=== PATIENT | male | born 1950 | race Caucasian/White ===

== ENCOUNTER 2020-12-09 06:32 | Emergency (ER) | payer MEDICARE, OTHER, SELFPAY ==
--- NOTE | 2020-12-09 07:21 | W.ED.COVID ---
HPI - COVID General: Chief Complaint: Infusion Bammaycoivtiffanie History of Present Illness: HPI Narrative: 70-year-old male presents emergency room he was scheduled for an outpatient monoclonal antibody infusion however the nurses notified me on his arrival that his oxygen sat was borderline at times he was desatting into 90 and slightly below. At rest he maintains his oxygenation. complaint: known COVID positive Prior covid testing: yes, results known (Patient test yesterday at an outpatient facility.) COVID 19 common symptoms: positive fever(s), chills, cough, dyspnea and body aches; negative throat pain, nasal congestion, nausea or diarrhea COVID 19 other sytmptoms: negative chest pain Onset (ago): day(s) (9) Severity: mild COVID Results: No Data to Display Review of Systems Const: Reports: fever(s), chills and body aches ENMT: Denies: throat pain, ear or mastoid pain, nasal discharge or nasal congestion Card: Reports: dyspnea on exertion; Denies: chest pain, edema or orthopnea Resp: Reports: dyspnea GI: Denies: nausea or diarrhea : Denies: flank pain, dysuria, urinary frequency or urinary urgency Skin/Breast: Denies: rash or pruritus Physical Exam Const: COMMON NORMALS: no acute distress GENERAL APPEARANCE: cooperative and comfortable ORIENTATION/CONSCIOUSNESS: Yes awake, Yes oriented to person, Yes oriented to place and Yes oriented to time HENMT: COMMON NORMALS: normocephalic, atraumatic and hearing grossly normal bilaterally HEAD & SCALP: normocephalic and atraumatic Neck/C-Spine: COMMON NORMALS: no JVD Resp: COMMON NORMALS: normal respiratory effort, No retractions, No use of accessory muscles and clear to auscultation bilaterally AUSCULTATION: clear to auscultation bilaterally Cardio: COMMON NORMALS: no JVD, regular rate, regular rhythm and No murmurs present (Cardio) RATE: regular rate RHYTHM: regular rhythm GI: COMMON NORMALS: Soft to palpation and No hepatosplenomegaly present AUSCULTATION: Yes normoactive bowel sounds PALPATION: Yes Soft to palpation, No Tenderness to palpation present (GI), No Guarding due to palpation present (GI) and Yes No hepatosplenomegaly present Extremity: COMMON NORMALS: normal to inspection, capillary refill normal, no clubbing, cyanosis or edema, no calf tenderness and no pedal edema Neuro: SENSORIUM/ORIENTATION: Yes oriented to person, Yes oriented to place and Yes oriented to time Skin: COMMON NORMALS: no rashes or lesions noted GENERAL SKIN EXAM: no rashes or lesions noted MDM - COVID MDM Narrative: Medical decision making narrative: Unfortunately the patient desatted to 89 with ambulatory oxygen testing. According to emergency use authorization criteria for the monoclonal antibody infusions he does not qualify at this point. We will cancel the infusion instead we will discharge him home on 2 L by nasal cannula of oxygen have him monitor his oxygen saturations at the fingers at monitor. We will also start him on dexamethasone 10 mg daily have him follow-up in 3 to 5 days. COVID Results: No Data to Display Discharge Plan Discharge Patient Disposition: Home Clinical Impression: COVID-19 Condition: Stable Prescriptions: New Medrol (Fredrick) 4 mg tablets,dose pack See Rx Instructions .ROUTE .COMPLEX Qty: 21 RF: 0 Discharge Orders: Discharge ED (Routine); Ordered 12/09/20 Ordered By: Herberth Shetty Other Ambulatory Orders: DME: Oxygen (Order) Location: None Selected Ordered By: Herberth Shetty Referrals: Marixa Damian FNP [Primary Care Provider] - Discharge Diet: Usual diet Discharge Activity: Limit activity as instructed Patient Instructions: Opioid Safety Activity Restrictions/Additional Instructions: We will start you on oxygen. He will likely be using this for the next 2 to 3 weeks or potentially longer. Also start on oral steroids. Recommend that you follow-up with your primary care doctor within the next 5 to 7 days. Monitor your oxygen at home with a finger saturation monitor given to you today if consistently falls below 90 to 92% while on oxygen 2 L/min return to the emergency room. Coding Level of Care Code ED Live Truck Technician for Wayne Daley Exam Comprehensive
[2020-12-09 07:32] VITALS: BP 134/88; PULSE 78; RESP 18; TEMP 36.9; O2SAT 94; BMI 31.2
[2020-12-09 07:37] VITALS: BP 134/88; PULSE 80; RESP 18; TEMP 36.9; O2SAT 94
[2020-12-09 08:30] VITALS: BP 129/86; PULSE 74; RESP 18; TEMP 37.1; O2SAT 95
== END 2020-12-09 08:30 | disposition home or self-care (01) ==
PROVIDERS: Emergency Provider Family Medicine; PCP Nurse Practitioner; Visit Provider Nurse Practitioner
DX: U07.1 COVID-19 (principal)
CPT/HCPCS: 99282

== ENCOUNTER 2025-07-01 15:58 | Emergency (ER) | payer MEDICARE, OTHER, SELFPAY ==
[2025-07-01 16:00] VITALS: BP 156/80; PULSE 59; RESP 16; TEMP 36.5; O2SAT 98
--- NOTE | 2025-07-01 16:03 | ECG_ITS ---
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 Measurements Intervals [place] Rate: 86 P: 73 WI: 199 QRS: -38 QRSD: 150 T: 18 QT: 391 QTc: 469 Interpretive Statements SINUS RHYTHM WITH FREQUENT VENTRICULAR PREMATURE COMPLEXES LEFT AXIS DEVIATION [QRS AXIS < -30] RIGHT BUNDLE BRANCH BLOCK [120+ ms QRS DURATION, UPRIGHT V1, 40+ ms S IN I/aVL/V4/V5/V6] No previous ECG available for comparison Electronically Signed On 07-01-2025 20:02:50 [employer] by Rex Roberson M.D. [email or web address]
--- OUTSIDE RECORDS SUMMARY | 2025-07-01 16:03 | XMS_ITS | Encounter Summary ---
Author Organization [facility] [facility] Address [address] [place] [address] Care Team Providers Care Heavy Equipment Mechanic Name Role Phone Unavailable Primary Care Provider Unavailabl e Encounter Details Date Type Department Care Team (Latest Contact Info) Description 04/24/2002 Outpatient Historical [facility] Booker Lowe Jr., MD [facility] [place] [address] OSTEOARTHROS NOS-UNSPEC (Primary Dx); Inhibited sex excitement Social History Tobacco Use Types Packs/Day Years Used Date Smoking Tobacco: Never Assessed Sex and Gender Information Value Date Recorded Sex Assigned at Not on file Legal 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
--- OUTSIDE RECORDS SUMMARY | 2025-07-01 16:03 | XMS_ITS | Clinical Summary ---
Author Organization [employer] [facility] Address [address] 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
--- NOTE | 2025-07-01 16:13 | XRR_ITS ---
PROCEDURE INFORMATION: Exam: XR Chest Exam date and time: 07/01/2025 4:18 PM Age: 75 years old Clinical indication: Shortness of breath; Additional info: Short of breath TECHNIQUE: Imaging protocol: Radiologic exam of the chest. Views: 1 view. COMPARISON: No relevant prior studies available. FINDINGS: Lungs: Unremarkable. No consolidation. Pleural spaces: Unremarkable. No pleural effusion. No pneumothorax. Heart/Mediastinum: Heart size is enlarged. Bones/joints: There are moderate degenerative changes of the bony structures. XR/XR chest 1V portable [id number] IMPRESSION: Cardiomegaly. No acute abnormality identified.
--- NOTE | 2025-07-01 16:16 | ED_ITS ---
HPI - SOB/Dyspnea 2 General: Chief Complaint: Shortness of Breath/Dyspnea Stated Complaint: Possible A Fib SOB Feels like Passing out Time Seen by Provider: 07/01/25 16:09 History of Present Illness: HPI Narrative: 75-year-old man with who has no known pa st medical history and takes no regular medications who presents emergency room from urgent care after he was found to be in atrial fibrillation with a controlled rate. He has no known history of this. He had gone to the clinic because he was feeling tired, fatigued and having fatigue on exertion with some shortness of breath for the last couple of weeks. No chest pain. No abdominal pain. No nausea or vomiting. No altered mental status. Related Data Home Medications ?Medication ?Instructions ?Recorded ?Confirmed aspirin 81 mg tablet,delayed 81 mg PO DAILY 07/01/25 1 08/31/24 release (Adult Low Dose Aspirin) semaglutide 2 mg/dose (8 mg/3 mL) 2 mg SUBCUT Q7D 06/2007/01/25 subcutaneous pen injector (Ozempic) Previous Rx's ?Medication ?Instructions ?Recorded metoprolol tartrate 25 mg tablet 12.5 mg (1/2 x 25 mg) PO BID #30 07/01/25 tabs Allergies Allergy/AdvReac Type Severity Reaction Status Date / Time No Known Allergies Allergy Verified 07/01/25 14:12 Review of Systems 2 Narrative: Constitutional symptoms: Negative except as documented in HPI. Skin symptoms: Negative except as documented in HPI. Eye symptoms: Negative except as documented in HPI. ENMT symptoms: Negative except as documented in HPI. Respiratory symptoms: Negative except as documented in HPI. Cardiovascular symptoms: Negative except as documented in HPI. Gastrointestinal symptoms: Negative except as documented in HPI. Genitourinary symptoms: Negative except as documented in HPI. Musculoskeletal symptoms: Negative except as documented in HPI. Neurologic symptoms: Negative except as documented in HPI. Psychiatric symptoms: Negative except as documented in HPI. Endocrine symptoms: Negative except as documented in HPI. PFSH ED 2 PFSH: Social History Smoking and tobacco/nicotine status: never used tobacco/nicotine Physical Exam 2 Narrative: EXAM NARRATIVE: General: Alert, no acute distress. Skin: Warm, dry. Head: Normocephalic, atraumatic. Neck: Supple, trachea midline. Eye: Extraocular movements are intact. Ears, nose, mouth and throat: mucosa moist. Cardiovascular: Regular, Normal peripheral perfusion. Respiratory: Lungs are clear to auscultation, respirations are non-labored, breath sounds are equal, Symmetrical chest wall expansion. Gastrointestinal: Soft, Nontender, Non distended Musculoskeletal: Normal ROM, no deformity. Neurological: Alert and oriented, No focal neurological deficit observed. Psychiatric: Cooperative, appropriate mood & affect. Course 2 Vital Signs: Vital signs: Vital Signs Temperature 97.7 F 07/01/25 16:00 Pulse Rate 64 07/01/25 17:30 Respiratory Rate 16 07/01/25 16:00 Blood Pressure 131/72 07/01/25 17:30 Pulse Oximetry 97 07/01/25 17:30 Oxygen Delivery Me thod Room Air 07/01/25 17:30 MDM - SOB/Dyspnea Medical Decision Making Medical decision making Patient's reason for coming to the emergency room: Exertional dyspnea and fatigue Social determinants: Patient is retired I reviewed the patient's medical record. Patient has no previous lab work here. He was seen by Dr. Arroyo back in October. He has an appoint with him next week. I reviewed the patient's current home meds Patient says he takes no home medications currently. Alternate historians: None Differential diagnosis for patient with shortness of breath includes but is not limited to and based on the above HPI, review of systems and physical exam: Pneumonia. Bronchitis. Asthma or COPD with acute exacerbation. Acute coronary syndrome / PA. Pulmonary embolism. Anxiety. Congestive heart failure. Viral infections including influenza and Covid-19. Atrial fibrillation. Anxiety. Pleural effusion. Pneumothorax. Orders placed to evaluate differential diagnosis based on the above differential, HPI and physical exam EKG: Time 1603. Rate 86. Normal sinus rhythm, No ST-T changes, PVCs, right bundle branch block, This was reviewed and interpreted by myself the ER physician at 1608 Chest x-ray: No acute process. No infiltrate. No pneumothorax. This was reviewed and interpreted by myself the emergency room physician. I also reviewed the radiology report. Lab Review: Laboratory results were reviewed and interpreted by myself the emergency room physician. No leukocytosis. No anemia. No renal failure. Assessment of risk: Level of risk: Mild. Hospitalization considerations: No consideration for hospitalization today. Reexamination: Patient remained stable. No increased work of breathing. No altered mental status. No focal motor deficits. Assessment and plan: PVCs - Discharged home - Discussed plan with patient. Answered any questions. - Evaluation and treatment of this problem were appropriate in the emergency setting. Lab Data 07/01/25 16:22 07/01/25 16:22 Labs/Radiology: Radiology Impressions Chest X-Ray 07/01/25 16:13 IMPRESSION: Cardiomegaly. No acute abnormality identified. Laboratory Results WBC 8.08 10^3/uL (3.29-11.43) 07/01/25 16:22 RBC 3.58 10^6/uL (3.85-5.65) L 07/01/25 16:22 Hgb 8.70 g/dL (11.27-16.99) L 07/01/25 16:22 Hct 28.5 % (37-53) L 07/01/25 16:22 MCV 79.6 fl (82-101) L 07/01/25 16:22 MCH 24.3 pg (27-33) L 07/01/25 16:22 MCHC 30.5 g/dL (30-55) 07/01/25 16:22 RDW 12.8 % (12.1-15.1) 07/01/25 16:22 Plt Count 198 10^3/cmm (157-399) 07/01/25 16:22 MPV 9.3 fL (7.4-10.4) 07/01/25 16:22 Neut % (Auto) 72.9 % 07/01/25 16:22 Lymph % (Auto) 17.1 % 07/01/25 16:22 Ponce % (Auto) 8.8 % 07/01/25 16:22 Eos % (Auto) 0.4 % 07/01/25 16:22 Baso % (Auto) 0.6 % 07/01/25 16:22 Neut # (Auto) 5.89 10^3/uL (1.8-7.7) 07/01/25 16:22 Lymph # (Auto) 1.4 10^3/uL (0.8-4.8) 07/01/25 16:22 Ponce # (Auto) 0.7 10^3/uL (0.2-0.9) 07/01/25 16:22 Eos # (Auto) 0.0 10^3/uL (0.0-0.8) 07/01/25 16:22 Baso # (Auto) 0.1 10^3/uL (0.0-0.1) 07/01/25 16:22 Nucleated RBC % (auto) 0 % 07/01/25 16:22 Nucleated RBCs # 0.0 /100WBC 07/01/25 16:22 Sodium 138 mmol/L (136-145) 07/01/25 16:22 Potassium 4.7 mmol/L (3.5-5.1) 07/01/25 16:22 Chloride 101 mmol/L (98-107) 07/01/25 16:22 Carbon Dioxide 25 mmol/L (22-29) 07/01/25 16:22 Anion Gap 16.7 (5-19) 07/01/25 16:22 BUN 22 mg/dL (8-23) 07/01/25 16:22 Creatinine 1.2 mg/dL (0.7-1.2) 07/01/25 16:22 GFR Calculation Not Reportable 07/01/25 16:22 Glucose 119 mg/dL (65-115) H 07/01/25 16:22 Calculated Osmolality 290 mOsm/kg (285-295) 07/01/25 16:22 Calcium 9.4 mg/dL (8.5-10.5) 07/01/25 16:22 Magnesium 2.2 mg/dL (1.7-2.3) 07/01/25 16:22 Total Bilirubin 0.4 mg/dL (0.15-1.2) 07/01/25 16:22 AST 14 U/L (0-40) 07/01/25 16:22 ALT 9 U/L (0-41) 07/01/25 16:22 Alkaline Phosphatase 89 U/L (40-130) 07/01/25 16:22 NT-Pro-B Natriuret Pep 533 pg/mL (0-450) H 07/01/25 16:22 Total Protein 8.0 g/dL (6.6-8.7) 07/01/25 16:22 Albumin 4.5 g/dL (3.5-5.2) 07/01/25 16:22 Globulin 3.5 g/dL (1.3-4.6) 07/01/25 16:22 TSH 3.95 uIU/mL (0.27-4.20) 07/01/25 16:22 All radiology interpretation(s) finalized by discharge Discharge Plan Discharge Patient Disposition: Home Clinical Impression: Frequent PVCs Condition: Stable Prescriptions: New metoprolol tartrate 25 mg tablet 12.5 mg PO BID Qty: 30 0RF No Action aspirin [Adult Low Dose Aspirin] 81 mg tablet,delayed release (DR/EC) 81 mg PO DAILY Ozempic 2 mg/dose (8 mg/3 mL) pen injector 2 mg SUBCUT Q7D Discharge Orders: Discharge ED (Routine); Ordered 07/01/25 Ordered By: Mary Gregory Referrals: Marixa Damian FNP [Primary Care Provider, Family Practice] Discharge Diet: Usual diet Discharge Activity: Increase activity as tolerated Patient Instructions: Heart Palpitations (ED), Opioid Safety, Pain Management, Patient Portal & [place] Instructions Activity Restrictions/Additional Instructions: Please keep follow-up appointment with Dr. Estrada Thank you for choosing [facility] for your healthcare needs today. You have been screened and evaluated and felt safe for discharge. Health conditions do change or evolve sometimes and as such it is important that you follow up with your Primary Doctor to be re checked, 3-5 days is a general good time frame for follow up. You are always welcome to return to the ED for re assessment if your symptoms are worsening or you have new concerns Print Language: [place] Coding Level of Care Code ED Disability Counselor for Wayne Daley
[2025-07-01 16:27] LABS: Hematocrit 28.5 % (37-53); Hemoglobin 8.70 g/dL (11.27-16.99); Mean Corpuscular HGB Conc 30.5 g/dL (30-55); Mean Corpuscular Hemoglobin 24.3 pg (27-33); Mean Corpuscular Volume 79.6 fl (82-101); Nucleated Red Blood Cells % 0 %; Platelet Count 198 10^3/cmm (157-399); Red Blood Count 3.58 10^6/uL (3.85-5.65); White Blood Count 8.08 10^3/uL (3.29-11.43)
--- NOTE | 2025-07-01 16:49 | PC.PHAR ---
Patient took his Ozempic on Sunday . Patient states he takes his Ozempic joseph 21 days not weekly like it says . Patient also wasn't sure of his dosage .I posted dosage according to the Pharmacy Sig .
[2025-07-01 17:10] LABS: Alanine Aminotransferase 9 U/L (0-41); Albumin Level 4.5 g/dL (3.5-5.2); Alkaline Phosphatase 89 U/L (40-130); Anion Gap 16.7 (5-19); Aspartate Amino Transferase 14 U/L (0-40); Blood Urea Nitrogen 22 mg/dL (8-23); Calcium 9.4 mg/dL (8.5-10.5); Carbon Dioxide 25 mmol/L (22-29); Chloride 101 mmol/L (98-107); Creatinine Clr Calc Pharmacy 69.5368; Globulin 3.5 g/dL (1.3-4.6); Glucose 119 mg/dL (65-115); Magnesium 2.2 mg/dL (1.7-2.3); NT Pro B Type Natriuretic Pept 533 pg/mL (0-450); Osmolality Calculated 290 mOsm/kg (285-295); Potassium 4.7 mmol/L (3.5-5.1); Sodium 138 mmol/L (136-145); Thyroid Stimulating Hormone 3.95 uIU/mL (0.27-4.20); Total Protein 8.0 g/dL (6.6-8.7)
[2025-07-01 17:30] VITALS: BP 131/72; PULSE 64; O2SAT 97
[2025-07-01 18:01] VITALS: BP 141/86; PULSE 77; O2SAT 97
== END 2025-07-01 18:03 | disposition home or self-care (01) ==
PROVIDERS: Physician Assistant; Emergency Provider Emergency Medicine; PCP Nurse Practitioner
DX: I49.3 Ventricular premature depolarization (principal); Z79.82 Long term (current) use of aspirin
CPT/HCPCS: 36415; 71045; 80053; 83735; 83880; 84443; 85025; 93005; 99285

== ENCOUNTER → 2025-07-10 10:12 | Outpatient (BNVA) | payer MEDICARE, OTHER, SELFPAY | PROVIDERS: PCP Family Medicine; Visit Provider Family Medicine | DX: Z13.6 Encounter for screening for cardiovascular disorders (principal); D64.9 Anemia, unspecified; R73.09 Other abnormal glucose | CPT/HCPCS: 80048; 80061; 82728; 83036; 83550; 84439; 84443; 85025 ==

== ENCOUNTER 2025-08-19 13:00 | Oncology outpatient (recurring) (ONCR) | payer MEDICARE, OTHER, SELFPAY ==
[2025-08-10 13:44] VITALS: BP 153/66; PULSE 48; RESP 16; TEMP 36.1; O2SAT 98
[2025-08-10] MEDS: iron sucrose 200 MG/100 ML BAG IV (13:57)
[2025-08-10 14:54] VITALS: BP 136/71; PULSE 91; RESP 18; TEMP 36.2; O2SAT 95
[2025-08-12 09:53] VITALS: BP 142/84; PULSE 81; RESP 17; TEMP 36.6; O2SAT 98
[2025-08-12] MEDS: iron sucrose 200 MG/100 ML BAG IV (09:58)
[2025-08-17] MEDS: iron sucrose 200 MG/100 ML BAG IV (13:09)
[2025-08-17 13:13] VITALS: BP 131/73; PULSE 82; RESP 0; TEMP 36.1; O2SAT 97
[2025-08-19] MEDS: iron sucrose 200 MG/100 ML BAG IV (12:49)
[2025-08-19 13:30] VITALS: BP 116/82; PULSE 84; RESP 16; TEMP 36.8; O2SAT 96
== END 2025-08-19 23:59 | disposition home or self-care (01) ==
PROVIDERS: PCP Family Medicine; Visit Provider Internal Medicine Medical Oncology
DX: D64.9 Anemia, unspecified; Z79.899 Other long term (current) drug therapy; Z53.9 Procedure and treatment not carried out, unspecified reason
CPT/HCPCS: 96365; J1756; J7050